=== PATIENT | male | born 1985 | race Caucasian/White ===

== ENCOUNTER 2022-02-14 20:50 | Emergency (ER) | payer OTHER ==
[2022-02-14 20:55] VITALS: BP 150/90; PULSE 100; RESP 17; TEMP 98.6; BMI 39.9
[2022-02-14] MEDS ORDERED: ALBUTEROL SO4 2.5/IPRATROPIUM 0.5 INH SOL 3 ML VIAL.NEB. NEB SCH (22:45)
[2022-02-14] MEDS ORDERED: ALBUTEROL SO4 2.5/IPRATROPIUM 0.5 INH SOL 3 ML VIAL.NEB. NEB ONE (22:48)
== END 2022-02-15 | disposition home or self-care (01) ==
LOC: JERFT 20:50
PROC: 3E0F7GC Introduction of Other Therapeutic Substance into Respiratory Tract, Via Natural or Artificial Opening (ICD-10-PCS; principal; 2022-02-14)
DX: R05.1 Acute cough (principal)
CPT/HCPCS: 71046-TC-FY; 99283-25